=== PATIENT | female | born 1930 | race African-American/Black ===

== ENCOUNTER 2021-05-05 07:32 | Inpatient (IN) | payer MEDICARE, MEDICAID ==
[2021-05-05] MEDS ORDERED: Dextrose 5% in Water 1,000 ML IV PRN (11:05)
[2021-05-05] MEDS ORDERED: Dextrose 50% Abboject 50 ML SYRINGE SLOW IVP PRN (11:05)
[2021-05-05] MEDS ORDERED: Ondansetron PF 4 MG/2 ML Vial IVP PRN (11:05)
[2021-05-05 12:48] LABS: SARS-CoV-2 NAA Rapid Test DETECTED (NotDetected)
[2021-05-05] MEDS ORDERED: Acetaminophen 325 MG TAB PO PRN (15:13)
[2021-05-05] MEDS ORDERED: FLU VACC QS2021-22(65YR UP)/PF 240 MCG/0.7 ML SYRINGE IM ONE (16:15)
[2021-05-05 16:49] LABS: INR-International Normal Ratio 1.1; PTT 46.6 sec (22.9-36.1); Prothrombin Time 14.7 sec (12.0-14.7)
[2021-05-05 16:51] LABS: Hemoglobin 12.1 g/dL (12.0-16.0); Mean Corpuscular HGB CONC 33.5 g/dL (32.0-36.0); Mean Corpuscular Hemoglobin 26.7 pg (27.0-31.0); Mean Corpuscular Volume 79.7 fL (78.0-98.0); Mean Platelet Volume 7.8 fL (7.4-10.4); Platelet Count 437 thou/uL (130-400); RBC Distribution Width 14.3 % (11.5-14.5); Red Blood Cell (RBC) Count 4.55 mill/uL (4.20-5.40); White Blood Cell (WBC) Count 12.3 thou/uL (4.8-10.8)
[2021-05-05 17:05] LABS: Band 1 % (5-11); Lymphocytes 13 % (21-51); MDiff Complete? YES; Monocytes 12 % (0-10); Neutrophil 73 % (42-75); Platelet Morphology Comment Appears Increased; Reactive Lymphocytes 1 % (0-10); Target Cells SLIGHT = 2-5 cells (100X) (0-1/hpf)
[2021-05-05 17:27] LABS: Anion Gap 17 mmol/L (10-20); BUN (Urea Nitrogen) 8 mg/dL (9.8-20.1); Calc. Creatinine Clearance 44 mL/min (70-130); Calcium 9.6 mg/dL (7.8-10.44); Carbon Dioxide 22 mmol/L (23-31); Chloride 101 mmol/L (98-107); Glucose 90 mg/dL (83-110); Potassium 4.1 mmol/L (3.5-5.1); Sodium 136 mmol/L (136-145)
[2021-05-05 17:37] LABS: Magnesium 2.1 mg/dL (1.6-2.6)
[2021-05-05] MEDS: hydrALAZINE 20 MG/ML VIAL SLOW IVP PRN (18:20)
[2021-05-05] MEDS ORDERED: Sodium Chloride 0.9% 500 ML IV SCH (21:15)
[2021-05-05] MEDS: Sodium Chloride 0.9% 1,000 ML IV SCH (21:50)
[2021-05-05] MEDS: Famotidine/PF 20 mg/2ml Vial SLOW IVP SCH (21:50)
[2021-05-06 04:13] LABS: Anion Gap 16 mmol/L (10-20); BUN (Urea Nitrogen) 8 mg/dL (9.8-20.1); Calc. Creatinine Clearance 41 mL/min (70-130); Calcium 9.4 mg/dL (7.8-10.44); Carbon Dioxide 21 mmol/L (23-31); Chloride 103 mmol/L (98-107); Glucose 90 mg/dL (83-110); Magnesium 2.1 mg/dL (1.6-2.6); Sodium 136 mmol/L (136-145)
[2021-05-06 05:29] VITALS: BMI 19.3
[2021-05-06 06:59] LABS: #Lymphocytes 1.3 thou/uL (1.20-3.40); #Monocytes 1.5 thou/uL (0.11-0.59); #Neutrophils 9.9 thou/uL (1.40-6.50); %Basophils 0.1 % (0.0-1.0); %Eosinophils 0.2 % (0.0-10.0); %Lymphocytes 10.1 % (21.0-51.0); %Monocytes 11.4 % (0.0-10.0); %Neutrophils 78.2 % (42.0-75.0); Hemoglobin 11.4 g/dL (12.0-16.0); Mean Corpuscular HGB CONC 33.9 g/dL (32.0-36.0); Mean Corpuscular Volume 79.4 fL (78.0-98.0); Mean Platelet Volume 7.5 fL (7.4-10.4); Platelet Count 434 thou/uL (130-400); RBC Distribution Width 14.2 % (11.5-14.5); Red Blood Cell (RBC) Count 4.23 mill/uL (4.20-5.40); White Blood Cell (WBC) Count 12.7 thou/uL (4.8-10.8)
[2021-05-06 07:13] LABS: INR-International Normal Ratio 1.2; Prothrombin Time 15.2 sec (12.0-14.7)
[2021-05-06] MEDS ORDERED: Carvedilol 3.125 MG TAB PO SCH ×3 (08:00→17:00)
[2021-05-06] MEDS ORDERED: Lisinopril 2.5 MG TAB PO SCH ×2 (09:00→10:15)
[2021-05-06] MEDS: Famotidine/PF 20 mg/2ml Vial SLOW IVP SCH ×2 (09:44→20:44)
[2021-05-06] MEDS: Sodium Chloride 0.9% 1,000 ML IV SCH ×2 (11:47→18:07)
[2021-05-06] MEDS: hydrALAZINE 20 MG/ML VIAL SLOW IVP PRN (21:13)
[2021-05-07 03:41] LABS: #Lymphocytes 0.9 thou/uL (1.20-3.40); #Monocytes 2.1 thou/uL (0.11-0.59); #Neutrophils 11.4 thou/uL (1.40-6.50); %Lymphocytes 6.5 % (21.0-51.0); %Monocytes 14.6 % (0.0-10.0); %Neutrophils 78.9 % (42.0-75.0); Hemoglobin 10.6 g/dL (12.0-16.0); Mean Corpuscular HGB CONC 33.9 g/dL (32.0-36.0); Mean Corpuscular Volume 79.7 fL (78.0-98.0); Mean Platelet Volume 7.5 fL (7.4-10.4); Platelet Count 390 thou/uL (130-400); Red Blood Cell (RBC) Count 3.91 mill/uL (4.20-5.40); White Blood Cell (WBC) Count 14.5 thou/uL (4.8-10.8)
[2021-05-07 04:06] LABS: Anion Gap 15 mmol/L (10-20); BUN (Urea Nitrogen) 8 mg/dL (9.8-20.1); Calc. Creatinine Clearance 47 mL/min (70-130); Calcium 8.8 mg/dL (7.8-10.44); Carbon Dioxide 19 mmol/L (23-31); Chloride 108 mmol/L (98-107); Glucose 82 mg/dL (83-110); Phosphorus 2.5 mg/dL (2.3-4.7); Potassium 3.5 mmol/L (3.5-5.1); Sodium 138 mmol/L (136-145)
[2021-05-07] MEDS ORDERED: Lisinopril 2.5 MG TAB PO SCH (09:00)
[2021-05-07] MEDS: clonazePAM 0.5 MG TAB PO SCH ×2 (09:09→21:27)
[2021-05-07] MEDS: DULoxetine 30 MG CAP PO SCH (09:09)
[2021-05-07] MEDS: Lisinopril 2.5 MG TAB PO SCH (09:09)
[2021-05-07] MEDS: Carvedilol 3.125 MG TAB PO SCH ×2 (09:09→21:27)
[2021-05-07] MEDS ORDERED: Polyethylene Glycol 3350 17 GM Packet PO SCH (19:45)
[2021-05-07] MEDS: Senokot S 8.6-50 MG TAB PO SCH (21:26)
[2021-05-08 03:49] LABS: #Lymphocytes 1.3 thou/uL (1.20-3.40); #Monocytes 1.9 thou/uL (0.11-0.59); #Neutrophils 11.3 thou/uL (1.40-6.50); %Basophils 0.1 % (0.0-1.0); %Eosinophils 0.2 % (0.0-10.0); %Lymphocytes 8.9 % (21.0-51.0); %Monocytes 12.8 % (0.0-10.0); %Neutrophils 78.1 % (42.0-75.0); Hemoglobin 10.3 g/dL (12.0-16.0); Mean Corpuscular HGB CONC 33.8 g/dL (32.0-36.0); Mean Corpuscular Hemoglobin 27.2 pg (27.0-31.0); Mean Corpuscular Volume 80.4 fL (78.0-98.0); Mean Platelet Volume 7.9 fL (7.4-10.4); Platelet Count 357 thou/uL (130-400); RBC Distribution Width 14.2 % (11.5-14.5); Red Blood Cell (RBC) Count 3.78 mill/uL (4.20-5.40); White Blood Cell (WBC) Count 14.5 thou/uL (4.8-10.8)
[2021-05-08 04:06] LABS: Anion Gap 11 mmol/L (10-20); BUN (Urea Nitrogen) 13 mg/dL (9.8-20.1); Calc. Creatinine Clearance 50 mL/min (70-130); Calcium 9.1 mg/dL (7.8-10.44); Carbon Dioxide 22 mmol/L (23-31); Chloride 108 mmol/L (98-107); Glucose 95 mg/dL (83-110); Magnesium 2.1 mg/dL (1.6-2.6); Phosphorus 2.7 mg/dL (2.3-4.7); Potassium 3.7 mmol/L (3.5-5.1); Sodium 137 mmol/L (136-145)
[2021-05-08 07:53] VITALS: TEMP 97.4
[2021-05-08] MEDS: clonazePAM 0.5 MG TAB PO SCH (08:28)
[2021-05-08] MEDS: Carvedilol 3.125 MG TAB PO SCH (08:28)
[2021-05-08] MEDS: DULoxetine 30 MG CAP PO SCH (08:28)
[2021-05-08] MEDS: Senokot S 8.6-50 MG TAB PO SCH (08:28)
[2021-05-08] MEDS: Lisinopril 2.5 MG TAB PO SCH (08:28)
[2021-05-08] MEDS ORDERED: Polyethylene Glycol 3350 17 GM Packet PO SCH (09:00)
[2021-05-08 15:25] VITALS: BP 121/61
== END 2021-05-08 18:56 | disposition swing bed (61) | DRG 82 ==
LOC: ERS 07:32 → CCU 11:05 → SURG A 14:56 → CCU 14:57 → IMCU/EMU 05-07 06:40
PROVIDERS: ADMIT Surgery; ATTEND Surgery
PROC: 8E0ZXY6 Isolation (ICD-10-PCS; principal; 2021-05-05)
DX: S06.5X9A Traumatic subdural hemorrhage with loss of consciousness of unspecified duration, initial encounter (principal); U07.1 COVID-19; I42.9 Cardiomyopathy, unspecified; E78.5 Hyperlipidemia, unspecified; F41.9 Anxiety disorder, unspecified; I50.9 Heart failure, unspecified; I25.10 Atherosclerotic heart disease of native coronary artery without angina pectoris; F32.A Depression, unspecified; I11.0 Hypertensive heart disease with heart failure; F03.90 Unspecified dementia, unspecified severity, without behavioral disturbance, psychotic disturbance, mood disturbance, and anxiety; W18.30XA Fall on same level, unspecified, initial encounter; S60.212A Contusion of left wrist, initial encounter; Z95.1 Presence of aortocoronary bypass graft; Z88.1 Allergy status to other antibiotic agents; Z88.2 Allergy status to sulfonamides; Z79.82 Long term (current) use of aspirin; Z79.899 Other long term (current) drug therapy; Z95.0 Presence of cardiac pacemaker; Z87.891 Personal history of nicotine dependence
CPT/HCPCS: 36415; 36430; 70450; 80048; 83735; 84100; 85025; 85610; 85730; 86850; 86900; 86901; 99285; G0390; J0360; J7030; J7050; P9035; S0028; U0002

== ENCOUNTER 2021-05-17 13:00 | Inpatient (IN) | payer MEDICARE, MEDICAID ==
[2021-05-17] MEDS ORDERED: Ondansetron PF 4 MG/2 ML Vial IVP PRN (13:26)
[2021-05-17] MEDS ORDERED: Promethazine HCl 25 MG/ML VIAL IM PRN (13:26)
[2021-05-17] MEDS ORDERED: Acetaminophen 325 MG TAB PO PRN (13:26)
[2021-05-17] MEDS ORDERED: hydrALAZINE 20 MG/ML VIAL SLOW IVP PRN ×2 (13:38→15:20)
[2021-05-17] MEDS ORDERED: HYDROcodone/Acetaminophen 7.5/325 mg Tablet PO PRN (15:22)
[2021-05-17] MEDS ORDERED: Labetalol HCl 100 MG/20 ML VIAL SLOW IVP PRN ×2 (15:22→21:32)
[2021-05-17] MEDS ORDERED: hydrALAZINE 20 MG/ML VIAL ONE (15:35)
[2021-05-17] MEDS ORDERED: Morphine 4 MG/ML VIAL SLOW IVP PRN (15:46)
[2021-05-17] MEDS: Sodium Chloride 0.9% 1,000 ML IV SCH ×2 (16:40→21:04)
[2021-05-17] MEDS: Famotidine/PF 20 mg/2ml Vial SLOW IVP SCH (20:34)
[2021-05-17] MEDS: Senokot S 8.6-50 MG TAB PO SCH (20:35)
[2021-05-17] MEDS: ceFAZolin 2 GM/Dextrose 50 ML 2 GM in Premix Bag 1 BAG IVPB SCH (21:09)
[2021-05-17] MEDS: hydrALAZINE 20 MG/ML VIAL SLOW IVP PRN (21:51)
[2021-05-18 04:39] LABS: Anion Gap 18 mmol/L (10-20); BUN (Urea Nitrogen) 10 mg/dL (9.8-20.1); Calc. Creatinine Clearance 38 mL/min (70-130); Calcium 9.4 mg/dL (7.8-10.44); Carbon Dioxide 17 mmol/L (23-31); Chloride 106 mmol/L (98-107); Glucose 77 mg/dL (83-110); Magnesium 1.8 mg/dL (1.6-2.6); Phosphorus 3.1 mg/dL (2.3-4.7); Potassium 3.7 mmol/L (3.5-5.1); Sodium 137 mmol/L (136-145)
[2021-05-18] MEDS: ceFAZolin 2 GM/Dextrose 50 ML 2 GM in Premix Bag 1 BAG IVPB SCH ×3 (04:58→20:56)
[2021-05-18 06:08] LABS: INR-International Normal Ratio 1.3; PTT 43.3 sec (22.9-36.1); Prothrombin Time 16.5 sec (12.0-14.7)
[2021-05-18 06:20] LABS: Band 6 % (5-11); Hemoglobin 10.5 g/dL (12.0-16.0); Hypochromia SLIGHT = 6-15 cells (100X) (0-5/hpf); Lymphocytes 7 % (21-51); MDiff Complete? YES; Mean Corpuscular HGB CONC 31.9 g/dL (32.0-36.0); Mean Corpuscular Hemoglobin 25.9 pg (27.0-31.0); Mean Corpuscular Volume 81.2 fL (78.0-98.0); Mean Platelet Volume 7.8 fL (7.4-10.4); Monocytes 16 % (0-10); Neutrophil 71 % (42-75); Nucleated RBC 1 % (0); Platelet Count 398 thou/uL (130-400); Platelet Morphology Comment Appears Adequate; RBC Distribution Width 15.5 % (11.5-14.5); Red Blood Cell (RBC) Count 4.05 mill/uL (4.20-5.40)
[2021-05-18] MEDS ORDERED: Magnesium Sulfate 3 GM in Sodium Chloride 0.9% 100 ML IV SCH (07:30)
[2021-05-18] MEDS: hydrALAZINE 20 MG/ML VIAL SLOW IVP PRN ×2 (10:33→18:21)
[2021-05-18] MEDS: Acetaminophen 650 MG Suppository PR PRN ×2 (11:47→20:56)
[2021-05-18] MEDS: Sodium Chloride 0.9% 1,000 ML IV SCH (12:57)
[2021-05-18] MEDS: Senokot S 8.6-50 MG TAB PO SCH ×2 (18:24→20:00)
[2021-05-18] MEDS: Carvedilol 3.125 MG TAB PO SCH (18:24)
[2021-05-18] MEDS: Polyethylene Glycol 3350 17 GM Packet PO SCH (18:24)
[2021-05-18] MEDS: DULoxetine 30 MG CAP PO SCH (18:24)
[2021-05-18] MEDS: Famotidine/PF 20 mg/2ml Vial SLOW IVP SCH (20:55)
[2021-05-19 04:06] LABS: #Lymphocytes 1.1 thou/uL (1.20-3.40); #Monocytes 1.8 thou/uL (0.11-0.59); #Neutrophils 9.6 thou/uL (1.40-6.50); %Basophils 0.1 % (0.0-1.0); %Eosinophils 0.1 % (0.0-10.0); %Lymphocytes 8.8 % (21.0-51.0); %Monocytes 14.2 % (0.0-10.0); %Neutrophils 76.7 % (42.0-75.0); Hemoglobin 9.6 g/dL (12.0-16.0); Mean Corpuscular HGB CONC 31.8 g/dL (32.0-36.0); Mean Corpuscular Hemoglobin 26.5 pg (27.0-31.0); Mean Corpuscular Volume 83.1 fL (78.0-98.0); Mean Platelet Volume 8.2 fL (7.4-10.4); Platelet Count 387 thou/uL (130-400); RBC Distribution Width 15.6 % (11.5-14.5); Red Blood Cell (RBC) Count 3.62 mill/uL (4.20-5.40); White Blood Cell (WBC) Count 12.6 thou/uL (4.8-10.8)
[2021-05-19] MEDS: ceFAZolin 2 GM/Dextrose 50 ML 2 GM in Premix Bag 1 BAG IVPB SCH ×2 (04:24→14:11)
[2021-05-19 04:59] LABS: Anion Gap 17 mmol/L (10-20); BUN (Urea Nitrogen) 11 mg/dL (9.8-20.1); Calc. Creatinine Clearance 41 mL/min (70-130); Calcium 8.8 mg/dL (7.8-10.44); Carbon Dioxide 17 mmol/L (23-31); Chloride 108 mmol/L (98-107); Glucose 79 mg/dL (83-110); Magnesium 2.4 mg/dL (1.6-2.6); Phosphorus 2.4 mg/dL (2.3-4.7); Potassium 3.4 mmol/L (3.5-5.1); Sodium 139 mmol/L (136-145)
[2021-05-19] MEDS ORDERED: Potassium Phosphate 30 MMOL in Sodium Chloride 0.9% 250 ML 250 ML IVPB SCH (07:15)
[2021-05-19] MEDS: Sodium Chloride 0.9% 1,000 ML IV SCH (09:32)
[2021-05-19] MEDS: Senokot S 8.6-50 MG TAB PO SCH ×2 (09:33→20:41)
[2021-05-19] MEDS: Carvedilol 3.125 MG TAB PO SCH (09:33)
[2021-05-19] MEDS: Polyethylene Glycol 3350 17 GM Packet PO SCH (09:33)
[2021-05-19] MEDS: DULoxetine 30 MG CAP PO SCH (09:33)
[2021-05-19] MEDS: hydrALAZINE 20 MG/ML VIAL SLOW IVP PRN (18:08)
[2021-05-19] MEDS: Famotidine/PF 20 mg/2ml Vial SLOW IVP SCH (20:41)
[2021-05-19] MEDS: CEFAZOLIN 2 GM, Admixture Fee 1 EACH in Sodium Chloride 0.9% 100 ML IVPB SCH (21:36)
[2021-05-20] MEDS: CEFAZOLIN 2 GM, Admixture Fee 1 EACH in Sodium Chloride 0.9% 100 ML IVPB SCH ×3 (05:10→23:08)
[2021-05-20 06:27] LABS: #Lymphocytes 0.7 thou/uL (1.20-3.40); #Neutrophils 9.2 thou/uL (1.40-6.50); %Eosinophils 0.1 % (0.0-10.0); %Lymphocytes 6.5 % (21.0-51.0); %Monocytes 9.4 % (0.0-10.0); %Neutrophils 84.1 % (42.0-75.0); Hemoglobin 8.6 g/dL (12.0-16.0); Mean Corpuscular Hemoglobin 26.7 pg (27.0-31.0); Mean Corpuscular Volume 81.2 fL (78.0-98.0); Mean Platelet Volume 8.1 fL (7.4-10.4); Platelet Count 405 thou/uL (130-400); RBC Distribution Width 15.3 % (11.5-14.5); White Blood Cell (WBC) Count 10.9 thou/uL (4.8-10.8)
[2021-05-20 06:47] LABS: Anion Gap 15 mmol/L (10-20); BUN (Urea Nitrogen) 10 mg/dL (9.8-20.1); Calc. Creatinine Clearance 43 mL/min (70-130); Calcium 8.8 mg/dL (7.8-10.44); Carbon Dioxide 18 mmol/L (23-31); Chloride 112 mmol/L (98-107); Glucose 85 mg/dL (83-110); Magnesium 2.1 mg/dL (1.6-2.6); Phosphorus 2.3 mg/dL (2.3-4.7); Potassium 3.5 mmol/L (3.5-5.1); Sodium 141 mmol/L (136-145)
[2021-05-20] MEDS ORDERED: Potassium Phosphate 30 MMOL in Sodium Chloride 0.9% 250 ML 250 ML IVPB SCH (08:00)
[2021-05-20] MEDS: Senokot S 8.6-50 MG TAB PO SCH ×2 (09:00→20:45)
[2021-05-20] MEDS: Polyethylene Glycol 3350 17 GM Packet PO SCH (09:00)
[2021-05-20] MEDS ORDERED: Ketamine 50 MG/ML (10ML VIAL) ONE (10:14)
[2021-05-20] MEDS ORDERED: PROPOFOL 200 MG/20 ML VIAL ONE (10:18)
[2021-05-20 11:42] VITALS: BMI 16.7
[2021-05-20] MEDS: Carvedilol 3.125 MG TAB PO SCH ×2 (14:50→19:35)
[2021-05-20] MEDS: DULoxetine 30 MG CAP PO SCH (14:50)
[2021-05-20] MEDS: Famotidine/PF 20 mg/2ml Vial SLOW IVP SCH (20:46)
[2021-05-20] MEDS: hydrALAZINE 20 MG/ML VIAL SLOW IVP PRN (20:55)
[2021-05-21 05:50] LABS: #Lymphocytes 0.8 thou/uL (1.20-3.40); #Monocytes 1.2 thou/uL (0.11-0.59); #Neutrophils 11.3 thou/uL (1.40-6.50); %Basophils 0.3 % (0.0-1.0); %Eosinophils 0.1 % (0.0-10.0); %Lymphocytes 5.8 % (21.0-51.0); %Monocytes 8.7 % (0.0-10.0); %Neutrophils 85.2 % (42.0-75.0); Hemoglobin 8.5 g/dL (12.0-16.0); Mean Corpuscular HGB CONC 33.4 g/dL (32.0-36.0); Mean Corpuscular Hemoglobin 26.6 pg (27.0-31.0); Mean Corpuscular Volume 79.6 fL (78.0-98.0); Mean Platelet Volume 7.8 fL (7.4-10.4); Platelet Count 375 thou/uL (130-400); RBC Distribution Width 15.1 % (11.5-14.5); Red Blood Cell (RBC) Count 3.19 mill/uL (4.20-5.40); White Blood Cell (WBC) Count 13.3 thou/uL (4.8-10.8)
[2021-05-21] MEDS: CEFAZOLIN 2 GM, Admixture Fee 1 EACH in Sodium Chloride 0.9% 100 ML IVPB SCH ×2 (06:03→14:17)
[2021-05-21 06:12] LABS: Anion Gap 14 mmol/L (10-20); BUN (Urea Nitrogen) 10 mg/dL (9.8-20.1); Calc. Creatinine Clearance 39 mL/min (70-130); Calcium 8.7 mg/dL (7.8-10.44); Carbon Dioxide 22 mmol/L (23-31); Chloride 113 mmol/L (98-107); Glucose 104 mg/dL (83-110); Phosphorus 2.3 mg/dL (2.3-4.7); Potassium 3.4 mmol/L (3.5-5.1); Sodium 146 mmol/L (136-145)
[2021-05-21] MEDS ORDERED: Potassium Phosphate 30 MMOL in Sodium Chloride 0.9% 250 ML 250 ML IVPB SCH (08:00)
[2021-05-21] MEDS: Polyethylene Glycol 3350 17 GM Packet PO SCH (08:22)
[2021-05-21] MEDS: DULoxetine 30 MG CAP PO SCH (08:23)
[2021-05-21] MEDS: Senokot S 8.6-50 MG TAB PO SCH ×2 (08:23→20:33)
[2021-05-21] MEDS: Lisinopril 2.5 MG TAB PO SCH (08:23)
[2021-05-21] MEDS: Carvedilol 3.125 MG TAB PO SCH ×2 (08:23→19:15)
[2021-05-21] MEDS: Acetaminophen/Codeine 30-300mg Tablet PO PRN (14:17)
[2021-05-21] MEDS: Famotidine/PF 20 mg/2ml Vial SLOW IVP SCH (20:33)
[2021-05-22 05:57] LABS: Anion Gap 12 mmol/L (10-20); BUN (Urea Nitrogen) 13 mg/dL (9.8-20.1); Calc. Creatinine Clearance 43 mL/min (70-130); Calcium 8.6 mg/dL (7.8-10.44); Carbon Dioxide 22 mmol/L (23-31); Chloride 115 mmol/L (98-107); Glucose 125 mg/dL (83-110); Magnesium 1.9 mg/dL (1.6-2.6); Phosphorus 2.3 mg/dL (2.3-4.7); Potassium 3.9 mmol/L (3.5-5.1); Sodium 145 mmol/L (136-145)
[2021-05-22] MEDS: Acetaminophen/Codeine 30-300mg Tablet PO PRN (05:59)
[2021-05-22 06:06] LABS: #Eosinphils 0.1 thou/uL (0.0-0.7); #Lymphocytes 1.1 thou/uL (1.20-3.40); #Neutrophils 9.6 thou/uL (1.40-6.50); %Basophils 0.2 % (0.0-1.0); %Eosinophils 0.5 % (0.0-10.0); %Monocytes 8.4 % (0.0-10.0); %Neutrophils 81.8 % (42.0-75.0); Hemoglobin 8.6 g/dL (12.0-16.0); Mean Corpuscular HGB CONC 31.8 g/dL (32.0-36.0); Mean Corpuscular Hemoglobin 26.6 pg (27.0-31.0); Mean Corpuscular Volume 83.7 fL (78.0-98.0); Platelet Count 374 thou/uL (130-400); RBC Distribution Width 15.4 % (11.5-14.5); Red Blood Cell (RBC) Count 3.22 mill/uL (4.20-5.40); White Blood Cell (WBC) Count 11.7 thou/uL (4.8-10.8)
[2021-05-22] MEDS ORDERED: PHOS-NAK 1 PKT PACK PO SCH (08:00)
[2021-05-22] MEDS: Carvedilol 3.125 MG TAB PO SCH ×2 (10:45→19:02)
[2021-05-22] MEDS: Lisinopril 2.5 MG TAB PO SCH (10:46)
[2021-05-22] MEDS: Senokot S 8.6-50 MG TAB PO SCH ×2 (10:46→20:37)
[2021-05-22] MEDS: DULoxetine 30 MG CAP PO SCH (10:46)
[2021-05-22] MEDS: Polyethylene Glycol 3350 17 GM Packet PO SCH (10:47)
[2021-05-22 20:29] VITALS: TEMP 98.2
[2021-05-22] MEDS: hydrALAZINE 20 MG/ML VIAL SLOW IVP PRN (20:31)
[2021-05-22] MEDS: Famotidine/PF 20 mg/2ml Vial SLOW IVP SCH (20:33)
[2021-05-22 21:16] VITALS: BP 135/75
== END 2021-05-22 22:02 | DRG 26 ==
LOC: SJX 13:00 → CCU 13:26 → SURG A 05-19 19:38
PROVIDERS: ADMIT Surgery; ATTEND Surgery
PROC: 009400Z Drainage of Intracranial Subdural Space with Drainage Device, Open Approach (ICD-10-PCS; principal; 2021-05-17)
PROC: 06H03DZ Insertion of Intraluminal Device into Inferior Vena Cava, Percutaneous Approach (ICD-10-PCS; 2021-05-18)
PROC: B5191ZZ Fluoroscopy of Inferior Vena Cava using Low Osmolar Contrast (ICD-10-PCS; 2021-05-18)
PROC: 0DH63UZ Insertion of Feeding Device into Stomach, Percutaneous Approach (ICD-10-PCS; 2021-05-20)
PROC: 3E0G76Z Introduction of Nutritional Substance into Upper GI, Via Natural or Artificial Opening (ICD-10-PCS; 2021-05-20)
DX: I62.01 Nontraumatic acute subdural hemorrhage (principal); I82.413 Acute embolism and thrombosis of femoral vein, bilateral; D62 Acute posthemorrhagic anemia; E44.0 Moderate protein-calorie malnutrition; Z68.1 Body mass index [BMI] 19.9 or less, adult; I62.03 Nontraumatic chronic subdural hemorrhage; I10 Essential (primary) hypertension; I25.10 Atherosclerotic heart disease of native coronary artery without angina pectoris; F03.90 Unspecified dementia, unspecified severity, without behavioral disturbance, psychotic disturbance, mood disturbance, and anxiety; F41.9 Anxiety disorder, unspecified; F32.A Depression, unspecified; E87.6 Hypokalemia; E83.39 Other disorders of phosphorus metabolism; R13.12 Dysphagia, oropharyngeal phase; Z95.0 Presence of cardiac pacemaker; Z79.899 Other long term (current) drug therapy; Z87.891 Personal history of nicotine dependence
CPT/HCPCS: 36415; 37191; 70450; 80048; 83735; 84100; 85025; 85610; 85730; 86850; 86900; 86901; 93970; B4087; C1713; C1880; J0360; J0690; J2704; J3475; J3490; J7050; S0028